=== PATIENT | female | born 1975 | race African-American/Black ===

== ENCOUNTER 2019-02-14 10:25 | Outpatient (CLI) | payer OTHER | END 2019-02-14 23:16 | disposition home or self-care (01) | LOC: MAMMO 10:25 | DX: Z12.31 Encounter for screening mammogram for malignant neoplasm of breast (principal) ==

== ENCOUNTER 2019-08-06 09:17 | Emergency (ER) | payer OTHER ==
[~2019-08-06] VITALS: Ht 154.9 cm; Wt 56.7 kg
[2019-08-06 09:26] VITALS: TEMP 98.8
[2019-08-06 10:01] LABS: POTASSIUM 3.8 mmol/L (3.6-5.2)
[2019-08-06 10:10] LABS: PLATELET COUNT 219 K/uL (152-353)
[2019-08-06 11:47] VITALS: BP 101/66
== END 2019-08-06 11:48 | disposition home or self-care (01) ==
LOC: ED 09:17
PROVIDERS: Hospitalist
DX: R10.9 Unspecified abdominal pain (principal); N39.0 Urinary tract infection, site not specified
CPT/HCPCS: 36415; 80053; 81000; 81025; 82150; 83690; 85027; 87088; 96360; 96375; 99284; J1885; J2405

== ENCOUNTER 2021-07-23 08:48 | Outpatient (CLI) | payer OTHER | END 2021-07-23 18:51 | disposition home or self-care (01) | LOC: MAMMO 08:48 | PROVIDERS: ATTEND Internal Medicine | DX: Z12.31 Encounter for screening mammogram for malignant neoplasm of breast (principal) ==